=== PATIENT | male | born 1990 | race American Indian/Alaskan Native ===

== ENCOUNTER 2016-05-24 17:35 | Emergency (ER) | payer BC ==
[2016-05-24 19:00] LABS: Basophils % (Auto) 0.2 % (0.0-1.8); Eosinophils % (Auto) 0.6 % (0.0-4.3); Hematocrit 39.5 % (35.5-45.6); Hemoglobin 13.2 gm/dl (11.8-15.2); Mean Corpuscular HGB Conc 33 % (32-34); Mean Corpuscular Hemoglobin 29 pg (28-32); Mean Corpuscular Volume 87 fl (84-94); Platelet Count 282 K/mm3 (140-440); Red Blood Count 4.53 M/mm3 (3.65-5.03); Red Cell Distribution Width 13.2 % (13.2-15.2); White Blood Count 7.4 K/mm3 (4.5-11.0)
[2016-05-24 19:21] LABS: Alanine Aminotransferase 19 units/L (7-56); Albumin 3.8 g/dL (3.9-5); Albumin/Globulin Ratio 0.8 %; Alkaline Phosphatase 56 units/L (35-129); Anion Gap 17 mmol/L; BUN/Creatinine Ratio 6.25; Bilirubin,Total 0.5 mg/dL (0.1-1.2); Blood Urea Nitrogen 5 mg/dL (9-20); Calcium 9.3 mg/dL (8.4-10.2); Carbon Dioxide 28 mmol/L (22-30); Chloride 94.7 mmol/L (98-107); Glucose 85 mg/dL (75-100); Lipase 14 units/L (13-60); Potassium 3.1 mmol/L (3.6-5.0); Sodium 137 mmol/L (137-145); Total Protein 8.8 g/dL (6.3-8.2)
[2016-05-24 19:44] LABS: Bilirubin,Urine NEG (Negative); Blood,Urine NEG (Negative); Ketones,Urine 80 mg/dL (Negative); Leukocyte Esterase,Urine NEG (Negative); Mucus,Urine 3+ /HPF; Nitrite,Urine NEG (Negative)
[2016-05-24 23:20] VITALS: BP 111/76
[2016-05-24] MEDS ORDERED: LIDOCAINE VISCOUS 2% PO ONE (23:30)
--- NOTE | 2016-05-24 23:35 | Emergency Department Report ---
HPI - General Chief Complaint: Nausea/Vomiting/Diarrhea Time Seen by Provider: 05/24/16 23:20 - HPI HPI: Room 18 The patient is a 26-year-old male presenting with a chief complaint of vomiting and diarrhea. The patient states for approximately 2 weeks she has experienced symptoms which included nausea vomiting and diarrhea. Patient states he went to urgent care facility where the physician was concerned he may have peptic ulcer disease. Patient was started on omeprazole was told that if he did not improve after 2 weeks to come to the ED. Patient denied ever having abdominal pain was states he now feels as though his esophagus is "swollen." Patient states he has pain when he swallows. Patient states he continues to have nausea vomiting and diarrhea. Patient denies any history of fever. The patient states his esophageal pain is intermittent and comes on with belching or swallowing. Patient denies any sick contacts or recent antibiotic usage. Patient denies any travel outside of the [place] in 2016. The patient states he was tested for HIV November 2015 and it was negative. Patient denies any steroid usage. Location: [see above] Duration: 2 weeks Quality: Pain Severity: Moderate Modifying factors: [see above] Context: [see above] Mode of transportation: Unknown ED Past Medical Hx - Past Medical History Previous Medical History?: No - Surgical History Past Surgical History?: No - Family History Family history: no significant - Social History Smoking Status: Never Smoker Substance Use Type: None (denies illicit drug use), Alcohol (occ) - Medications Home Medications: Home Medications Medication Instructions Recorded Confirmed Last Taken Type Fluconazole [Diflucan TAB] 200 mg PO QDAY #14 tablet 05/24/16 Unknown Rx Promethazine [Phenergan TAB] 25 mg PO Q6HR PRN #20 tab 05/24/16 Unknown Rx Promethazine [Phenergan] 25 mg CA Q6HR PRN #10 supp.rect 05/24/16 Unknown Rx traMADol [Ultram] 50 mg PO Q6HR PRN #20 tablet 05/24/16 Unknown Rx ED Review of Systems ROS: Stated complaint: DEHYDRATION/DIARRHEA/ESOPHAGUS ULCER Other details as noted in HPI Comment: All other systems reviewed and negative Constitutional: denies: chills, fever Eyes: denies: eye pain, eye discharge, vision change ENT: throat pain Respiratory: denies: cough, shortness of breath, wheezing Cardiovascular: denies: chest pain, palpitations Endocrine: no symptoms reported Gastrointestinal: nausea, vomiting, diarrhea. denies: abdominal pain Genitourinary: denies: urgency, dysuria Musculoskeletal: denies: back pain, joint swelling, arthralgia Skin: denies: rash, lesions Neurological: denies: headache, weakness, paresthesias Psychiatric: denies: anxiety, depression Hematological/Lymphatic: denies: easy bleeding, easy bruising Physical Exam - Physical Exam Vital Signs: Vital Signs 05/24/16 05/24/16 05/24/16 17:43 23:19 23:27 Temperature 99.1 F 99.0 F Pulse Rate 110 H 100 H 76 Respiratory 18 18 16 Rate Blood Pressure 105/70 Blood Pressure 111/76 111/76 [Right] O2 Sat by Pulse 100 100 100 Oximetry Physical Exam: GENERAL: The patient is well-developed well-nourished male lying on stretcher not appearing to be in acute distress. [] HEENT: Normocephalic. Atraumatic. Extraocular motions are intact. Patient has moist mucous membranes. Posterior oropharynx appears to have thrush NECK: Supple. Midline CHEST/LUNGS: Clear to auscultation. There is no respiratory distress noted. HEART/CARDIOVASCULAR: Regular. There is no tachycardia. There is no gallop rub or murmur. ABDOMEN: Abdomen is soft, nontender. Patient has normal bowel sounds. There is no abdominal distention. SKIN: There is no rash. There is no edema. There is no diaphoresis. NEURO: The patient is awake, alert, and oriented. The patient is cooperative. The patient has normal speech MUSCULOSKELETAL: There is no evidence of acute injury. ED Course Vital Signs 05/24/16 05/24/16 05/24/16 17:43 23:19 23:27 Temperature 99.1 F 99.0 F Pulse Rate 110 H 100 H 76 Respiratory 18 18 16 Rate Blood Pressure 105/70 Blood Pressure 111/76 111/76 [Right] O2 Sat by Pulse 100 100 100 Oximetry - Reevaluation(s) Reevaluation #1: 05/24/16 23:50 Patient tolerating po ED Medical Decision Making - Lab Data Result diagrams: 05/24/16 18:31 05/24/16 18:31 Laboratory Tests 05/24/16 05/24/16 05/24/16 18:31 18:31 19:28 WBC 7.4 RBC 4.53 Hgb 13.2 Hct 39.5 MCV 87 MCH 29 MCHC 33 RDW 13.2 Plt Count 282 Lymph % (Auto) 15.8 [place] % (Auto) 9.0 H Eos % (Auto) 0.6 Baso % (Auto) 0.2 Lymph # 1.2 [place] # 0.7 Eos # 0.0 Baso # 0.0 Seg Neutrophils % 74.4 H Seg Neutrophils # 5.5 Sodium 137 Potassium 3.1 L Chloride 94.7 L Carbon Dioxide 28 Anion Gap 17 BUN 5 L Creatinine 0.8 Estimated GFR > 60 BUN/Creatinine Ratio 6.25 Glucose 85 Calcium 9.3 Total Bilirubin 0.5 AST 32 ALT 19 Alkaline Phosphatase 56 Total Protein 8.8 H Albumin 3.8 L Albumin/Globulin Ratio 0.8 Lipase 14 Urine Color [place] Urine Turbidity Clear Urine pH 6.0 Ur Specific [place] 1.025 Urine Protein 30 mg/dl Urine Glucose (UA) Neg Urine Ketones 80 Urine Blood Neg Urine Nitrite Neg Urine Bilirubin Neg Urine Urobilinogen 2.0 Ur Leukocyte Esterase Neg Urine WBC (Auto) 7.0 H Urine RBC (Auto) 7.0 Urine Mucus 3+ - Differential Diagnosis esophageal candidiasis, thrush, gastroenteritis, gastritis Critical care attestation.: If time is entered above; I have spent that time in minutes in the direct care of this critically ill patient, excluding procedure time. ED Disposition Clinical Impression: Esophageal candidiasis, Odynophagia, Nausea vomiting and diarrhea Disposition: DISCHARGED TO HOME OR SELFCARE Is pt being admited?: No Does the pt Need Aspirin: No Condition: Stable Additional Instructions: Return to the emergency department immediately should you develop worsening symptoms, fever, inability to tolerate food or liquid or any other concerns. Prescriptions: Fluconazole [Diflucan TAB] 200 mg PO QDAY #14 tablet Promethazine [Phenergan TAB] 25 mg PO Q6HR PRN #20 tab PRN Reason: Nausea Promethazine [Phenergan] 25 mg CA Q6HR PRN #10 supp.rect PRN Reason: Vomiting traMADol [Ultram] 50 mg PO Q6HR PRN #20 tablet PRN Reason: Pain Referrals: LASHONDA ESPARZA MD [Primary Care Provider] - 3-5 Days SIOBHAN MATTHEW MD [Staff Physician] - [facility] (Dr. Matthew is a staff design engineer. Please follow up with him for further evaluation) Time of Disposition: 23:48
[2016-05-24] MEDS ORDERED: K-DUR PO ONE (23:38)
== END 2016-05-25 00:08 | disposition home or self-care (01) ==
LOC: ED 17:35
DX: B37.81 Candidal esophagitis (principal); R19.7 Diarrhea, unspecified
CPT/HCPCS: 36415; 80053; 81001; 83690; 85025; 99283